=== PATIENT | male | born 1960 | race African-American/Black ===

== ENCOUNTER 2016-04-20 10:13 | Emergency (ER) | payer OTHER ==
[~2016-04-20] VITALS: Ht 177.8 cm; Wt 110.0 kg
[~2016-04-20 10:13] MED LIST: ALBU8I INH; ALLE10TA5 PO; ASPI81 PO; ATEN-102 PO; LIPI40TA PO; LISI-363 PO; PROT40TA PO
[2016-04-20] MEDS ORDERED: SODIUM CHLORIDE 0.9% FLUSH 5 ML FLUSH IVF PRN ×2 (10:30→11:00)
[2016-04-20] MEDS ORDERED: SODIUM CHLOR 0.9% 1000 ML INJ 1,000 ML IV SCH (10:51)
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
[2016-04-20 11:01] VITALS: BP 143/87; PULSE 100; RESP 20; TEMP 98.5; O2SAT 99
[2016-04-20 11:05] VITALS: BP 143/87; PULSE 94; RESP 20; O2SAT 99
[2016-04-20] MEDS ORDERED: CLAR10CA3 PO (11:12)
[2016-04-20] MEDS ORDERED: PANT20TA2 PO ×2 (11:12→13:35)
[2016-04-20] MEDS ORDERED: ATOR20TA15 PO (11:12)
[2016-04-20] MEDS ORDERED: ATEN50TA PO (11:12)
[2016-04-20] MEDS ORDERED: LISI40TA PO (11:12)
[2016-04-20] MEDS ORDERED: ASPI1TAB69 PO (11:12)
[2016-04-20 11:33] LABS: BASOPHIL % 0.2 % (0.0-2.0); EOSINOPHIL # 0.1 TH/MM3 (0-0.4); EOSINOPHIL % 0.8 % (0.0-4.0); HEMO FLAGS DIFF FINAL; LYMPH % 14.3 % (9.0-44.0); LYMPHOCYTE # 1.3 TH/MM3 (1.0-4.8); MEAN CELL VOLUME 83.7 FL (80.0-100.0); MEAN CORPUSCULAR HGB CONC 34.7 % (32.0-36.0); MONO % 5.7 % (0.0-8.0); PLATELET COUNT 203 TH/MM3 (150-450); RED BLOOD COUNT 4.66 MIL/MM3 (4.50-5.90); WHITE BLOOD COUNT 8.8 TH/MM3 (4.0-11.0)
[2016-04-20] MEDS ORDERED: PANTOPRAZOLE SODIUM 40 MG VIAL IVP ONE (11:45)
[2016-04-20 11:47] LABS: APTT (PATIENT) 26.1 SEC (24.3-30.1); PROTHROMBIN TIME - PATIENT 10.8 SEC (9.8-11.6)
--- NOTE | 2016-04-20 11:56 | RADRPT ---
EXAM DATE/TIME: 04/20/2016 11:14 [facility] COMPARISON: CHEST SINGLE AP, January 05, 2016, 14:46. INDICATIONS: Short of breath, evaluate for free air MEDICAL HISTORY: Myocardial infarction. SURGICAL HISTORY: Coronary artery stent. ENCOUNTER: Initial ACUITY: 1 day PAIN SCORE: 0/10 LOCATION: Bilateral chest FINDINGS: Lungs are under aerated but clear. Heart and pulmonary vascularity normal. Portion of bony skeleton visualized unremarkable. CONCLUSION: Under aerated, otherwise negative. Skyler Molina MD FACR on April 20, 2016 at 11:33 Board Certified Radiologist. This report was verified electronically.
[2016-04-20 11:58] LABS: ALKALINE PHOSPHATASE 69 U/L (45-117); ALT (GPT) 39 U/L (12-78); ANION GAP 8 MEQ/L (5-15); AST (GOT) 32 U/L (15-37); BICARBONATE 25.2 MEQ/L (21.0-32.0); BLOOD UREA NITROGEN 16 MG/DL (7-18); CHLORIDE 107 MEQ/L (98-107); GLOMERULAR FILTRATION RATE 82 ML/MIN (>89); SODIUM (NA) 140 MEQ/L (136-145); TOTAL BILIRUBIN ADULT 0.2 MG/DL (0.2-1.0)
[2016-04-20] MEDS ORDERED: IOHEXOL 350 MG/ML 10 ML VIAL (for RAD DIAG) IV ONE (12:51)
[2016-04-20 13:15] VITALS: BP 136/79; PULSE 83; RESP 20; O2SAT 98
--- NOTE | 2016-04-20 13:16 | RADRPT ---
EXAM DATE/TIME: 04/20/2016 12:41 [facility] COMPARISON: No previous studies available for comparison. INDICATIONS: Abdominal pain and cramping. Bloody stools x 3 days. IV CONTRAST: 85 cc Omnipaque 350 (iohexol) IV ORAL CONTRAST: No oral contrast ingested. RADIATION DOSE: 12.38 CTDIvol (mGy) MEDICAL HISTORY: Cardiovascular disease. Hypertension. Gastroesophageal reflux disease. SURGICAL HISTORY: Appendectomy. ENCOUNTER: Initial ACUITY: 3 days PAIN SCALE: 5/10 LOCATION: Abdomen. TECHNIQUE: Volumetric scanning of the abdomen and pelvis was performed. Using automated exposure control and ad justment of the mA and/or kV according to patient size, radiation dose was kept as low as reasonably achievable to obtain optimal diagnostic quality images. FINDINGS: Lungs bases are clear. Liver is free of focal defects. Spleen, pancreas, adrenals are unremarkable. Small cysts are seen in the left kidney. There is no ascites or adenopathy. Bladder is mildly distended. Pelvic contents are unremarkable. There is no free air. I do not see evidence for a colitis. CONCLUSION: Negative CT scan of the abdomen and pelvis. I do not see evidence for patient's abdominal pain or bl oody stools. Skyler Molina MD FACR on April 20, 2016 at 13:02 Board Certified Radiologist. This report was verified electronically.
[2016-04-20] MEDS ORDERED: ONDA4TAB7 SL (13:35)
--- NOTE | 2016-04-20 13:35 | PD ---
Data Data Last Documented VS Vital Signs Date Time Temp Pulse Resp B/P Pulse Ox O2 Delivery O2 Flow Rate FiO2 04/20/16 13:15 83 20 136/79 98 Room Air 04/20/16 11:01 98.5 Orders Complete Blood Count With Diff (04/20/16 10:18) Comprehensive Metabolic Panel (04/20/16 10:18) Lipase (04/20/16 10:18) Prothrombin Time / Inr (Pt) (04/20/16 10:18) Act Partial Throm Time (Ptt) (04/20/16 10:18) Type And Screen (04/20/16 10:18) Red Blood Cells (Rbc) (04/20/16 10:18) Ecg Monitoring (04/20/16 10:18) Iv Access Insert/Monitor (04/20/16 10:18) Orthostatic Vital Signs (04/20/16 10:18) Oximetry (04/20/16 10:18) Sodium Chloride 0.9% Flush (Ns Flush) (04/20/16 10:30) Ct Abd/Pel W Iv Contrast(Rout) (04/20/16 10:51) Sodium Chlor 0.9% 1000 Ml Inj (Ns 1000 M (04/20/16 10:51) Sodium Chloride 0.9% Flush (Ns Flush) (04/20/16 11:00) Chest, Single Ap (04/20/16 10:51) Pantoprazole Inj (Protonix Inj) (04/20/16 11:45) Iohexol 350 Inj (Omnipaque 350 Inj) (04/20/16 12:51) Labs Laboratory Tests Test 04/20/16 04/20/16 10:41 11:15 Blood Type B POSITIVE B POSITIVE White Blood Count 8.8 TH/MM3 Red Blood Count 4.66 MIL/MM3 Hemoglobin 13.5 GM/DL Hematocrit 39.0 % Mean Corpuscular Volume 83.7 FL Mean Corpuscular Hemoglobin 29.0 PG Mean Corpuscular Hemoglobin 34.7 % Concent Red Cell Distribution Width 14.0 % Platelet Count 203 TH/MM3 Mean Platelet Volume 8.0 FL Neutrophils (%) (Auto) 79.0 % Lymphocytes (%) (Auto) 14.3 % Monocytes (%) (Auto) 5.7 % Eosinophils (%) (Auto) 0.8 % Basophils (%) (Auto) 0.2 % Neutrophils # (Auto) 7.0 TH/MM3 Lymphocytes # (Auto) 1.3 TH/MM3 Monocytes # (Auto) 0.5 TH/MM3 Eosinophils # (Auto) 0.1 TH/MM3 Basophils # (Auto) 0.0 TH/MM3 CBC Comment DIFF FINAL Differential Comment Prothrombin Time 10.8 SEC Prothromb Time International 1.0 RATIO Ratio Activated Partial 26.1 SEC Thromboplast Time Sodium Level 140 MEQ/L Potassium Level 4.0 MEQ/L Chloride Level 107 MEQ/L Carbon Dioxide Level 25.2 MEQ/L Anion Gap 8 MEQ/L Blood Urea Nitrogen 16 MG/DL Creatinine 1.13 MG/DL Estimat Glomerular Filtration 82 ML/MIN Rate Random Glucose 97 MG/DL Calcium Level 8.6 MG/DL Total Bilirubin 0.2 MG/DL Aspartate Amino Transf 32 U/L (AST/SGOT) Alanine Aminotransferase 39 U/L (ALT/SGPT) Alkaline Phosphatase 69 U/L Total Protein 7.5 GM/DL Albumin 3.8 GM/DL Lipase 136 U/L Antibody Screen NEGATIVE Crossmatch Leukocyte-Reduced Red Blood Cells Blood Bank Comment MDM Supervised Visit with [facility]: Yes Narrative Course Assumed care patient care Mraio. 55-year-old male with some intermittent abdominal discomfort, some blood in his stool for the past several days, initially bright red and a little bit darker. Reportedly positive guaiac and outpatient clinic. No bloody stools here. He's also had some abdominal distention. Labs are unremarkable. CT is unremarkable. No evidence of significant bleeding. We'll recommend supportive treatment, continue PPI, outpatient follow-up with GI for probable endoscopy, return for any worsening symptoms. Diagnosis Primary Impression: Epigastric abdominal pain Referrals: [facility] Patient Instructions: General Instructions Additional Instruction: Continue pantoprazole as prescribed. Use Zofran if needed for nausea or vomiting. Follow-up with a batch tank controller for further evaluation of your bloody stools. Return to the emergency department for any worsening bloody stools, worsening abdominal pain, or any other new or worsening symptoms. Med/Other Pt SpecificInfo: Prescription(s) given Scripts Ondansetron Odt 4 Mg Tab4 Mg SL Q8HR PRN (Nausea/Vomiting) #12 TAB Prov:Toy Saldana MD 04/20/16 Pantoprazole 20 Mg Tab20 Mg PO DAILY #30 TAB Ref 0 Prov:Toy Saldana MD 04/20/16 Disposition: 01 DISCHARGE HOME Condition: Stable Toy Saldana MD Apr 20, 2016 13:35
[2016-04-20 14:39] VITALS: BP 156/96; PULSE 89; RESP 20; O2SAT 97
[2016-04-20 14:41] VITALS: BP 156/96
== END 2016-04-20 15:01 | disposition home or self-care (01) ==
LOC: NEPA 10:13
DX: R10.13 Epigastric pain (principal); R14.0 Abdominal distension (gaseous); R06.02 Shortness of breath; R42 Dizziness and giddiness; E78.00 Pure hypercholesterolemia, unspecified; I10 Essential (primary) hypertension
CPT/HCPCS: 71010; 74177; 80053; 83690; 85025; 85610; 85730; 86850; 86900; 86901; 86920; 96361; 96374; 99285; C9113; J7030; Q9967